=== PATIENT | male | born 1960 | race Caucasian/White ===

== ENCOUNTER 2018-12-23 02:50 | Emergency (ER) | payer MEDICAID ==
[2018-12-23] MEDS ORDERED: Morphine 2 MG/ML Syringe IVPUSH PRN (03:22)
[2018-12-23] MEDS ORDERED: Ondansetron 4 MG/2 ML SDV IVPUSH ONE (03:25)
[2018-12-23] MEDS ORDERED: Morphine 2 MG/ML Syringe IVPUSH ONE ×3 (03:25→11:41)
--- NOTE | 2018-12-23 03:28 | EDM.PDOC ---
ED HPI GENERAL MEDICAL PROBLEM - General Chief Complaint: Abdominal Pain Stated Complaint: Abdominal pain with distention Time Seen by Provider: 12/23/18 03:15 Source of Information: Reports: Patient History Limitations: Reports: No Limitations - History of Present Illness INITIAL COMMENTS - FREE TEXT/NARRATIVE: Patient states while cleaning the local [employer] tonight approximately an hour and a half ago he had a sharp sudden pain more so over the right lower quadrant that he says is a 10 out of 10 and hurts now to even move or walk he is had a sudden mont[place] of nausea but no vomiting he denies any fever or chills has had a positive bm today no problems with urination says he ate normal tonight no change from regular diet says he is currently undergoing radiation secondary to a recently diagnosed liver cancer he denies any back pain high blood pressure Onset: Today, Sudden Duration: Hour(s): Severity: Severe Improves with: Reports: None Associated Symptoms: Reports: No Other Symptoms mid abdomen Pain Score (Numeric/FACES): 6 - Related Data Allergies Allergy/AdvReac Type Severity Reaction Status Date / Time No Known Allergies Allergy Verified 12/23/18 03:19 Home Meds: Home Meds . [No Known Home Meds] 07/22/15 [History] Past Medical History - Past Health History Medical/Surgical History: Denies Medical/Surgical History - Infectious Disease History Infectious Disease History: Reports: None ED ROS GENERAL - Review of Systems Review Of Systems: ROS reveals no pertinent complaints other than HPI. Constitutional: Denies: Fever, Chills, Malaise, Weakness, Fatigue HEENT: Reports: No Symptoms Respiratory: Reports: No Symptoms Cardiovascular: Reports: No Symptoms Endocrine: Reports: No Symptoms GI/Abdominal: Reports: Abdominal Pain, Nausea. Denies: Black Stool, Bloody Stool, Constipation, Decreased Appetite, Difficulty Swallowing, Flatus, Hematochezia, Melena, Vomiting : Reports: No Symptoms Musculoskeletal: Reports: No Symptoms Skin: Reports: No Symptoms Neurological: Reports: No Symptoms Psychiatric: Reports: No Symptoms Hematologic/Lymphatic: Reports: No Symptoms Immunologic: Reports: No Symptoms ED EXAM, GI/ABD - Physical Exam Exam: See Below Exam Limited By: No Limitations General Appearance: Alert, WD/WN, Mild Distress Eyes: Bilateral: Normal Appearance Throat/Mouth: Normal Inspection, Normal Lips, Normal Teeth, Normal Gums, Normal Oropharynx, Normal Voice, No Airway Compromise (mmm) Neck: Normal Inspection, Supple, Full Range of Motion. No: Lymphadenopathy (L) , Lymphadenopathy (R) Respiratory/Chest: No Respiratory Distress, Lungs Clear, Normal Breath Sounds, No Accessory Muscle Use GI/Abdominal Exam: Guarding, Rebound, Tender, Other (Patient noted to have slightly distended abdomen that is soft but he is guarding with positive rebound increased bowel sounds diffusely across the abdomen slight pain with a Rosving sign unsure for hepatosplenomegaly secondary to patient was so tender I could not appreciate the size of the spleen or liver). No: Non-Tender, No Abnormal Bruit, No Mass Back Exam: Full Range of Motion. No: CVA Tenderness (L), CVA Tenderness (R) Extremities: Normal Inspection, Normal Range of Motion, No Pedal Edema, Normal Capillary Refill Neurological: Alert, Oriented, CN II-XII Intact, Normal Cognition Psychiatric: Anxious Skin Exam: Warm, Intact, Normal Color. No: No Rash (Patient was noted to have 2 -3 mm circular superficial abrasions diffusely across the body and no particular pattern when asked what was going on he said they have recently had bed bugs at home there were no apparent linear burrows they were in healing stages no evidence of signs or symptoms of secondary infection) Lymphatic: No Adenopathy Course - Vital Signs Text/Narrative:: Vital signs were all stable as noted CBC CMP and urinalysis lactic acid CT abdomen and pelvis with IV contrast was ordered patient was given morphine 2 mg IV and can be titrated to 4 mg as needed for pain he was also given Zofran 4 mg IV elevated lft pt with DX Liver CA CT abd new onset ascities , Moderate ileus bowel gas pattern Last Recorded V/S: Last Vital Signs Temp 37.0 C 12/23/18 02:55 Pulse 73 12/23/18 02:55 Resp 16 12/23/18 02:55 BP 107/72 12/23/18 02:55 Pulse Ox 98 12/23/18 02:55 - Orders/Labs/Meds Orders: Active Orders 24 hr Category Date Time Status Abdomen Pelvis w Cont [CT] Stat Exams 12/23/18 03:22 Taken UA W/MICROSCOPIC [URIN] Stat Lab 12/23/18 03:22 Ordered Sodium Chloride 0.9% @ 125 MLS/HR (1000ml) Med 12/23/18 06:15 Ordered Sodium Chloride 0.9% [Normal Saline] 1,000 ml IV ASDIRECTED Labs: Laboratory Tests 12/23/18 12/23/18 12/23/18 Range/Units 03:36 03:36 03:36 WBC 5.3 (4.0-10.0) x10^3/uL RBC 4.62 (4.5-6.0) x10^6/uL Hgb 13.6 L (14.0-18.0) g/dL Hct 40.1 (40.0-52.0) % MCV 86.8 D (78.0-93.0) fL MCH 29.4 (26.0-32.0) pg MCHC 33.9 (32.0-36.0) g/dL RDW Coeff of Elijah 17.9 H (10.0-15.0) % Plt Count 233 D (130-400) x10^3/uL Neut % (Auto) 71.1 (50.0-80.0) % Lymph % (Auto) 13.9 L (25.0-50.0) % [place] % (Auto) 12.5 H (2.0-11.0) % Eos % (Auto) 1.7 (0.0-4.0) % Baso % (Auto) 0.8 (0.2-1.2) % Sodium 141 (136-145) mmol/L Potassium 4.0 (3.5-5.1) mmol/L Chloride 104 (98-107) mmol/L Carbon Dioxide 26 (21-32) mmol/L Anion Gap 15.0 (10-20) mmol/L BUN 12 (7-18) mg/dL Creatinine 1.2 (0.70-1.30) mg/dL Est Cr Clr Drug Dosing 66.28 mL/min Estimated GFR (MDRD) > 60 Glucose 123 H (74-106) mg/dL Lactic Acid 1.5 (0.4-2.0) mmol/L Calcium 8.7 (8.5-10.1) mg/dL Corrected Calcium 9.98 (8.5-10.1) mg/dL Total Bilirubin 1.5 H (0.2-1.0) mg/dL AST 501 H (15-37) U/L ALT 670 H (16-63) U/L Alkaline Phosphatase 110 (46-116) U/L Total Protein 6.7 (6.4-8.2) g/dL Albumin 2.4 L (3.4-5.0) g/dL Globulin 4.3 Albumin/Globulin Ratio 0.56 Meds: Medications Discontinued Medications Generic Name Dose Route Start Last Admin Trade Name Freq PRN Reason Stop Dose Admin Ondansetron HCl 8 mg/ Sodium 104 mls @ 400 mls/hr 12/23/18 03:31 Chloride IV 12/23/18 03:46 ONETIME ONE Iopamidol 100 ml 12/23/18 04:37 12/23/18 05:07 Isovue-300 (61%) IVPUSH 12/23/18 04:38 100 ml ONETIME ONE Administration Morphine Sulfate 2 mg 12/23/18 03:22 Morphine IVPUSH Q2H PRN Abdominal Pain Morphine Sulfate 2 mg 12/23/18 03:25 12/23/18 03:32 Morphine IVPUSH 12/23/18 03:26 2 mg ONETIME ONE Administration Morphine Sulfate 2 mg 12/23/18 04:58 12/23/18 05:09 Morphine IVPUSH 12/23/18 04:59 2 mg ONETIME ONE Administration Ondansetron HCl 4 mg 12/23/18 03:25 12/23/18 03:46 Zofran IVPUSH 12/23/18 03:26 4 mg ONETIME ONE Administration Departure - Departure Time of Disposition: 06:00 Disposition: DC/Tfer to Acute Hospital 02 Condition: Fair Clinical Impression: Abdominal pain, Ascites, Ileus - Discharge Information Forms: ED Department Discharge, Interfacility Transfer EMTALA - Problem List & Annotations (1) Abdominal pain SNOMED Code(s): 18858957 Code(s): R10.9 - UNSPECIFIED ABDOMINAL PAIN Status: Acute Current Visit: Yes (2) Ascites SNOMED Code(s): 805507674 Code(s): R18.8 - OTHER ASCITES Status: Acute Current Visit: Yes (3) Ileus SNOMED Code(s): 379337095 Code(s): K56.7 - ILEUS, UNSPECIFIED Status: Acute Current Visit: Yes - My Orders Last 24 Hours: My Active Orders 12/23/18 03:22 Abdomen Pelvis w Cont [CT] Stat UA W/MICROSCOPIC [URIN] Stat 12/23/18 06:15 Sodium Chloride 0.9% @ 125 MLS/HR (1000ml) Sodium Chloride 0.9% [Normal Saline] 1,000 ml IV ASDIRECTED - Assessment/Plan Last 24 Hours: My Active Orders 12/23/18 03:22 Abdomen Pelvis w Cont [CT] Stat UA W/MICROSCOPIC [URIN] Stat 12/23/18 06:15 Sodium Chloride 0.9% @ 125 MLS/HR (1000ml) Sodium Chloride 0.9% [Normal Saline] 1,000 ml IV ASDIRECTED Plan: Dr. Valentine [facility] hospitalist she will except transfer the patient for higher level of care at 0 6:39 AM patient was rechecked states he feels better after the morphine and Zofran normal saline was started at a rate of 125 mL's per hour spoke with the patient in regard to transfer and diagnosis
[2018-12-23] MEDS ORDERED: Ondansetron 8 MG in Sodium Chloride 0.9% 100 ML IV ONE (03:31)
[2018-12-23 04:08] LABS: CHLORIDE,CL 104 mmol/L (98-107); SODIUM,NA 141 mmol/L (136-145)
[2018-12-23] MEDS ORDERED: Iopamidol 612 MG/ML 100 ML Bottle IVPUSH ONE (04:37)
[2018-12-23] MEDS ORDERED: Sodium Chloride 0.9% 1,000 ML IV SCH (06:15)
[2018-12-23] MEDS ORDERED: Morphine 2 MG/ML Syringe IVPUSH STA (07:34)
[2018-12-23 08:17] VITALS: BP 94/59
--- NOTE | 2018-12-23 08:42 | CT ---
[id number] CT/CT Abdomen Pelvis W IV EXAM: ABDOMEN AND PELVIS CT WITH CONTRAST INDICATION: Abdominal pain. COMPARISON: October 14, 2017. DISCUSSION: There are scattered small noncalcified nodules measuring up to 5 mm within the lung bases not seen on the prior examination which are suspicious for metastatic disease. Some of these are not in the [id number] of the prior exam, however. The liver is cirrhotic. A dominant 7.4 cm mass centered in the left lobe is unchanged and most consistent with hepatocellular carcinoma. There are multiple other smaller heterogeneous and hypodense foci throughout the liver which are incompletely characterized on this portal venous examination. Invasion of the left portal venous system is similar to the prior study. Portal hypertension with stable mild splenomegaly with spleen measuring up to 13.2 cm in AP diameter, upper abdominal varices and moderate ascites. Ascites has markedly increased relative to the prior examination. There are dilated small bowel loops in the left abdomen which may relate to a localized ileus, but follow-up could help further exclude evidence of obstruction. A thick-walled appearance of the distal esophagus could relate to esophageal varices or esophagitis. Cholelithiasis. There is chronic gallbladder wall thickening in the context of liver disease limiting assessment for acute cholecystitis. The left kidney contains a small nonobstructing calculus and a small cyst. The pancreas, adrenal glands, right kidney and large bowel are normal in appearance. The osseous structures are unremarkable. IMPRESSION: 1. New small nodules in the lung bases suspicious for metastatic disease. 2. Cirrhosis, portal hypertension and dominant left hepatic hepatoma are similar to the previous examination. 3. Moderate ascites seen in minimally increased relative to the prior study. 4. Dilated small bowel loops in the left abdomen could relate to a localized ileus, but follow-up may be useful to help further exclude an early obstruction. Teddy Schmidt MD 12/23/18 0840 Thank you for allowing us to participate in the care of your patient.
[2018-12-23] MEDS ORDERED: Sodium Chloride 0.9% 10 ML Syringe IV PRN (11:50)
== END 2018-12-23 12:15 | disposition short-term general hospital (02) ==
LOC: VM.ED 02:50
DX: K56.7 Ileus, unspecified (principal); R18.8 Other ascites
CPT/HCPCS: 36415; 74177; 80053; 83605; 85025; 96361; 96374; 96375; 96376; 99285; J2270; J2405; J7030; Q9967

== ENCOUNTER 2019-01-17 00:20 | Emergency (ER) | payer MEDICAID ==
[2019-01-17] MEDS ORDERED: Sodium Chloride 0.9% 10 ML Syringe FLUSH PRN (00:38)
[2019-01-17] MEDS ORDERED: Ondansetron 4 MG/2 ML SDV IVPUSH ONE (00:42)
[2019-01-17] MEDS ORDERED: HYDROmorphone 1 MG/ML Syringe IVPUSH ONE (00:42)
--- NOTE | 2019-01-17 01:19 | EDM.PDOC ---
ED HPI GENERAL MEDICAL PROBLEM - General Chief Complaint: Abdominal Pain Stated Complaint: Abdominal Pain Time Seen by Provider: 01/17/19 00:35 Source of Information: Reports: Patient History Limitations: Reports: No Limitations - History of Present Illness INITIAL COMMENTS - FREE TEXT/NARRATIVE: Pt. presents to ER with complaints of R lower quadrant abdominal pain. Pt. 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 His PCP is at [facility], but he has been doing all of his cancer treatment through [facility]. Pt. sees Dr. Guevara for heme- onc. with his last appointment being 01/13/19. Pt. has severe ascites and has had paracentesis in the past. Pt. states that his oncologist wanted to perform paracentesis on the , but pt. refused as he did not have time. Pt. had radioembolization on the liver tumor in December and has had paracentesis performed 2-3 times. There was discussion about placement of a Pleur-x peritoneal catheter. He has yet to start any chemotherapy. Onset: Today Onset Date: 01/17/19 Location: Reports: Abdomen Quality: Reports: Ache Severity: Severe - Related Data Allergies Allergy/AdvReac Type Severity Reaction Status Date / Time No Known Allergies Allergy Verified 01/17/19 01:19 Home Meds: Home Meds hydrOXYzine HCl [Atarax] 25 mg PO Q8H PRN 01/17/19 [History] oxyCODONE 5 mg PO Q4HR #5 tab 01/17/19 [Rx] Past Medical History - Past Health History Medical/Surgical History: Denies Medical/Surgical History Gastrointestinal History: Reports: PUD - Infectious Disease History Infectious Disease History: Reports: None - Past Surgical History GI Surgical History: Reports: Appendectomy ED ROS GENERAL - Review of Systems Review Of Systems: See Below Constitutional: Reports: No Symptoms HEENT: Reports: No Symptoms Respiratory: Reports: No Symptoms Cardiovascular: Reports: No Symptoms Endocrine: Reports: No Symptoms GI/Abdominal: Reports: Abdominal Pain : Reports: No Symptoms Musculoskeletal: Reports: No Symptoms Skin: Reports: No Symptoms Neurological: Reports: No Symptoms Psychiatric: Reports: No Symptoms Hematologic/Lymphatic: Reports: No Symptoms Immunologic: Reports: No Symptoms ED EXAM, GENERAL - Physical Exam Exam: See Below Exam Limited By: No Limitations General Appearance: Alert, WD/WN, No Apparent Distress Nose: Normal Inspection, Normal Mucosa, No Blood Throat/Mouth: Normal Inspection, Normal Lips, Normal Teeth, Normal Gums Head: Atraumatic, Normocephalic Neck: Normal Inspection, Supple, Non-Tender, Full Range of Motion Respiratory/Chest: No Respiratory Distress, Lungs Clear, Normal Breath Sounds, No Accessory Muscle Use, Chest Non-Tender Cardiovascular: Normal Peripheral Pulses, Regular Rate, Rhythm, No Edema, No Gallop, No JVD, No Murmur, No Rub Peripheral Pulses: 4+: Radial (R) GI/Abdominal: Normal Bowel Sounds, Distended, Rigid, Tender, Hepatomegaly (Male) Exam: Deferred Rectal (Males) Exam: Deferred Back Exam: Normal Inspection, Full Range of Motion Extremities: Normal Inspection, Normal Range of Motion, Non-Tender, No Pedal Edema, Normal Capillary Refill Neurological: Alert, Oriented, CN II-XII Intact, Normal Cognition, Normal Gait, Normal Reflexes, No Motor/Sensory Deficits Psychiatric: Normal Affect, Normal Mood Skin Exam: Warm, Dry, Intact, Normal Color, No Rash Lymphatic: No Adenopathy Course - Orders/Labs/Meds Orders: Active Orders 24 hr Category Date Time Status CBC WITH AUTO DIFF [HEME] Stat Lab 01/17/19 00:38 Ordered COMPREHENSIVE METABOLIC PN,CMP [CHEM] Stat Lab 01/17/19 00:38 Ordered CRP [C-REACTIVE PROTEIN] [CHEM] Stat Lab 01/17/19 00:39 Ordered INR,PT,PROTHROMBIN TIME [COAG] Stat Lab 01/17/19 00:38 Ordered LACTIC ACID [CHEM] Stat Lab 01/17/19 00:40 Ordered MAGNESIUM [CHEM] Stat Lab 01/17/19 00:39 Ordered PHOSPHORUS [CHEM] Stat Lab 01/17/19 00:39 Ordered Sodium Chloride 0.9% [Saline Flush] Med 01/17/19 00:38 Ordered 10 ml FLUSH ASDIRECTED PRN Peripheral IV Insertion Adult [OM.PC] Routine Oth 01/17/19 00:39 Ordered Medication Orders Sodium Chloride (Saline Flush) 10 ml FLUSH ASDIRECTED PRN PRN Reason: Keep Vein Open Meds: Medications Generic Name Dose Route Start Last Admin Trade Name Freq PRN Reason Stop Dose Admin Sodium Chloride 10 ml 01/17/19 00:38 Saline Flush FLUSH ASDIRECTED PRN Keep Vein Open Discontinued Medications Generic Name Dose Route Start Last Admin Trade Name Leslie PRN Reason Stop Dose Admin Hydromorphone HCl 1 mg 01/17/19 00:42 Dilaudid IVPUSH 01/17/19 00:43 ONETIME ONE Ondansetron HCl 4 mg 01/17/19 00:42 Zofran IVPUSH 01/17/19 00:43 ONETIME ONE Departure - Departure Time of Disposition: 02:21 Disposition: Home, Self-Care 01 Clinical Impression: Cirrhosis of liver, Ascites, Hepatocellular carcinoma - Discharge Information Referrals: Esther Boswell, [facility] [Primary Care Provider] - - Problem List Review Problem List Initiated/Reviewed/Updated: Yes - My Orders Last 24 Hours: My Active Orders 01/17/19 00:38 CBC WITH AUTO DIFF [HEME] Stat COMPREHENSIVE METABOLIC PN,CMP [CHEM] Stat INR,PT,PROTHROMBIN TIME [COAG] Stat Sodium Chloride 0.9% [Saline Flush] 10 ml FLUSH ASDIRECTED PRN 01/17/19 00:39 CRP [C-REACTIVE PROTEIN] [CHEM] Stat MAGNESIUM [CHEM] Stat PHOSPHORUS [CHEM] Stat Peripheral IV Insertion Adult [OM.PC] Routine 01/17/19 00:40 LACTIC ACID [CHEM] Stat - Assessment/Plan Last 24 Hours: My Active Orders 01/17/19 00:38 CBC WITH AUTO DIFF [HEME] Stat COMPREHENSIVE METABOLIC PN,CMP [CHEM] Stat INR,PT,PROTHROMBIN TIME [COAG] Stat Sodium Chloride 0.9% [Saline Flush] 10 ml FLUSH ASDIRECTED PRN 01/17/19 00:39 CRP [C-REACTIVE PROTEIN] [CHEM] Stat MAGNESIUM [CHEM] Stat PHOSPHORUS [CHEM] Stat Peripheral IV Insertion Adult [OM.PC] Routine 01/17/19 00:40 LACTIC ACID [CHEM] Stat Plan: Discussed findings with Dr. Skinner. She states that she does not feel comfortable performing the procedure based on his past medical history. All of his laboratory studies are for the most part unchanged. He is not short of breath at this time and the dilaudid helped significantly with the pain, so the patient was given the option to follow-up either on Saturday regarding paracentesis or being transferred tonight (he does not have reliable transportation). Decision was made to follow-up in Saturday. He was offered admission to our facility for pain control if needed as well. Pt. wished to be discharge. He was urged to return to ER if he has any fever, chills, worsening discomfort, chest pain, or shortness of breath.
[2019-01-17 01:22] VITALS: BP 99/74
[2019-01-17 01:56] LABS: ANION GAP 11.9 mmol/L (10-20)
[2019-01-17] MEDS ORDERED: oxyCODONE 5 MG Tab ONE (02:26)
== END 2019-01-17 02:40 | disposition home or self-care (01) ==
LOC: VM.ED 00:20
DX: K74.60 Unspecified cirrhosis of liver (principal); C22.0 Liver cell carcinoma; R18.8 Other ascites; Z90.49 Acquired absence of other specified parts of digestive tract
CPT/HCPCS: 36415; 80053; 83605; 83735; 84100; 85025; 85610; 86140; 96374; 96375; 99284; A9270; J1170; J2405

== ENCOUNTER 2019-01-21 15:55 | Emergency (ER) | payer MEDICAID ==
[2019-01-21] MEDS ORDERED: Sodium Chloride 0.9% 10 ML Syringe FLUSH PRN (16:22)
--- NOTE | 2019-01-21 16:25 | EDM.PDOC ---
ED HPI GENERAL MEDICAL PROBLEM - General Chief Complaint: Abdominal Pain Stated Complaint: STOMACH PAIN Time Seen by Provider: 01/21/19 15:58 Source of Information: Reports: Patient, Old Records, RN, RN Notes Reviewed History Limitations: Reports: No Limitations - History of Present Illness INITIAL COMMENTS - FREE TEXT/NARRATIVE: Pt. presents to ER with complaints of R lower quadrant abdominal pain that started last Saturday. Patient was seen in this ER on 01/17/2019. He was offered admission, but refused. Pt. 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 His PCP is at [facility], but he has been doing all of his cancer treatment through [facility]. Pt. sees Dr. Guevara for heme-onc. with his last appointment being 05/30. Pt. has severe ascites and has had paracentesis in the past. Pt. states that his oncologist wanted to perform paracentesis on the , but pt. refused as he did not have time. Pt. had radioembolization on the liver tumor in December and has had paracentesis performed 2-3 times. There was discussion about placement of a Pleur-x peritoneal catheter. He has yet to start any chemotherapy. Patient stats he started oral chemo today. He gonzalez not think his pain is related to the chemo since the pain started days before. He denies any N/V/D. He states his BM's have been daily and normal. He was given pain medication at his last ER visit last Saturday but states he ran out of the medication today. Onset: Gradual Onset Date: 01/17/19 Right Lower Abdomen Pain Score (Numeric/FACES): 9 - Related Data Allergies Allergy/AdvReac Type Severity Reaction Status Date / Time No Known Allergies Allergy Verified 01/21/19 16:02 Home Meds: Home Meds hydrOXYzine HCl [Atarax] 25 mg PO Q8H PRN 01/17/19 [History] Lenvatinib Mesylate [Lenvima] 12 mg PO DAILY 01/21/19 [History] Loperamide [Imodium] 2 mg PO ASDIRECTED PRN 01/21/19 [History] Ondansetron [Zofran] 8 mg PO ASDIRECTED PRN 01/21/19 [History] Past Medical History - Past Health History Medical/Surgical History: Denies Medical/Surgical History Gastrointestinal History: Reports: PUD Other Gastrointestinal History: Transaminitis. 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 Denies: Fever, Chills Respiratory: Denies: Shortness of Breath Cardiovascular: Denies: No Symptoms, Chest Pain, Palpitations GI/Abdominal: Reports: Abdominal Pain, Decreased Appetite. Denies: Diarrhea, Nausea, Vomiting Skin: Reports: No Symptoms Neurological: Reports: No Symptoms ED EXAM, GI/ABD - Physical Exam Exam: See Below Exam Limited By: No Limitations General Appearance: Alert, No Apparent Distress, Cachetic Respiratory/Chest: No Respiratory Distress, Lungs Clear, Decreased Breath Sounds Cardiovascular: Normal Peripheral Pulses, Regular Rate, Rhythm GI/Abdominal Exam: Distended, Rigid, Tender (RLQ), Abnormal Bowel Sounds ( Hypoactive). No: Rebound Neurological: Alert, Oriented Skin Exam: Warm, Dry, Intact Course - Vital Signs Last Recorded V/S: Last Vital Signs Temp 36.7 C 01/21/19 15:57 Pulse 75 01/21/19 15:57 Resp 20 01/21/19 15:57 BP 111/65 01/21/19 15:57 Pulse Ox 96 01/21/19 15:57 - Orders/Labs/Meds Orders: Active Orders 24 hr Category Date Time Status UA RFX JOSE AND CULT IF INDIC [URIN] Stat Lab 01/21/19 16:21 Ordered Sodium Chloride 0.9% [Saline Flush] Med 01/21/19 16:22 Active 10 ml FLUSH ASDIRECTED PRN Peripheral IV Insertion Adult [OM.PC] Routine Oth 01/21/19 16:22 Ordered Medication Orders Sodium Chloride (Saline Flush) 10 ml FLUSH ASDIRECTED PRN PRN Reason: Keep Vein Open Labs: Laboratory Tests 01/21/19 01/21/19 01/21/19 Range/Units 16:43 16:43 16:43 WBC 8.6 (4.0-10.0) x10^3/uL RBC 4.07 L (4.5-6.0) x10^6/uL Hgb 12.4 L (14.0-18.0) g/dL Hct 33.8 L (40.0-52.0) % MCV 83.0 (78.0-93.0) fL MCH 30.5 (26.0-32.0) pg MCHC 36.7 H (32.0-36.0) g/dL RDW Coeff of Elijah 20.0 H (10.0-15.0) % Plt Count 201 (130-400) x10^3/uL Neut % (Auto) 75.2 (50.0-80.0) % Lymph % (Auto) 14.3 L (25.0-50.0) % [place] % (Auto) 9.5 (2.0-11.0) % Eos % (Auto) 0.7 (0.0-4.0) % Baso % (Auto) 0.3 (0.2-1.2) % Sodium 136 (136-145) mmol/L Potassium 5.0 (3.5-5.1) mmol/L Chloride 101 (98-107) mmol/L Carbon Dioxide 26 (21-32) mmol/L Anion Gap 14.0 (10-20) mmol/L BUN 34 H (7-18) mg/dL Creatinine 2.0 H (0.70-1.30) mg/dL Est Cr Clr Drug Dosing TNP Estimated GFR (MDRD) 34 Glucose 121 H (74-106) mg/dL Lactic Acid 1.9 (0.4-2.0) mmol/L Calcium 8.3 L (8.5-10.1) mg/dL Corrected Calcium 10.06 (8.5-10.1) mg/dL Total Bilirubin 3.8 H (0.2-1.0) mg/dL AST 313 H (15-37) U/L ALT 546 H (16-63) U/L Alkaline Phosphatase 111 (46-116) U/L C-Reactive Protein 1.2 H (<=0.9) mg/dL Total Protein 5.6 L (6.4-8.2) g/dL Albumin 1.8 L (3.4-5.0) g/dL Globulin 3.8 Albumin/Globulin Ratio 0.47 Amylase 69 (25-115) U/L Lipase 210 (73-393) U/L Meds: Medications Generic Name Dose Route Start Last Admin Trade Name Freq PRN Reason Stop Dose Admin Sodium Chloride 10 ml 01/21/19 16:22 Saline Flush FLUSH ASDIRECTED PRN Keep Vein Open Discontinued Medications Generic Name Dose Route Start Last Admin Trade Name Freq PRN Reason Stop Dose Admin Hydromorphone HCl 1 mg 01/21/19 16:22 01/21/19 16:44 Dilaudid IVPUSH 01/21/19 16:23 1 mg ONETIME ONE Administration Sodium Chloride 1,000 mls @ 999 mls/hr 01/21/19 16:23 01/21/19 16:40 Normal Saline IV 01/21/19 17:23 999 mls/hr ONETIME ONE Administration Iopamidol 100 ml 01/21/19 16:27 01/21/19 16:34 Isovue-300 (61%) IVPUSH 01/21/19 16:28 100 ml ONETIME ONE Administration Ondansetron HCl 4 mg 01/21/19 16:22 01/21/19 16:42 Zofran IVPUSH 01/21/19 16:23 4 mg ONETIME ONE Administration - Radiology Interpretation Free Text/Narrative:: CT Abd/Pelvis w contrast: Cirrhosis with sequela of portal hypertension including large volume ascites which is increased when compared to the prior study. There is evidence of multifocal HCC See scanned report in EMR for details CT Results Date: 01/21/19 CT Results Time: 17:17 Departure - Departure Time of Disposition: 17:41 Disposition: DC/Tfer to Acute Hospital 02 Condition: Fair Clinical Impression: Liver cancer, primary, with metastasis from liver to other site, Ascites due to alcoholic cirrhosis Acute renal failure Qualifiers: Acute renal failure type: unspecified Qualified Code(s): N17.9 - Acute kidney failure, unspecified - Discharge Information *PRESCRIPTION DRUG MONITORING PROGRAM REVIEWED*: Not Applicable *COPY OF PRESCRIPTION DRUG MONITORING REPORT IN PATIENT JOSH: Not Applicable Forms: Interfacility Transfer EMTALA ED Communication - ED Communication Date/Time Date: 01/21/19 Time Called: 17:34 - Discussed Case With (1) Discussed Case With (1): Admitting Provider (Dr. Le) - Conversation Summary Admitting Provider Agreed to Patient's Admission: Yes Patient Aware of Amendments fo Care Plan: Yes - Problem List Review Problem List Initiated/Reviewed/Updated: Yes - My Orders Last 24 Hours: My Active Orders 01/21/19 16:21 UA RFX JOSE AND CULT IF INDIC [URIN] Stat 01/21/19 16:22 Sodium Chloride 0.9% [Saline Flush] 10 ml FLUSH ASDIRECTED PRN Peripheral IV Insertion Adult [OM.PC] Routine - Assessment/Plan Last 24 Hours: My Active Orders 01/21/19 16:21 UA RFX JOSE AND CULT IF INDIC [URIN] Stat 01/21/19 16:22 Sodium Chloride 0.9% [Saline Flush] 10 ml FLUSH ASDIRECTED PRN Peripheral IV Insertion Adult [OM.PC] Routine Assessment:: Liver CA Ascites Acute Renal Failure Abdominal Pain Plan: Labs and CT scan results discussed with patient. Case discussed with accepting provider Dr Rey Thomas [place]. Patient will be sent via [facility] to [place]. Patient and SO aware and agree with plan of care and transfer.
[2019-01-21] MEDS: Iopamidol 612 MG/ML 100 ML Bottle IVPUSH ONE (16:34)
[2019-01-21] MEDS: Sodium Chloride 0.9% 1,000 ML IV ONE (16:40)
[2019-01-21] MEDS: Ondansetron 4 MG/2 ML SDV IVPUSH ONE (16:42)
[2019-01-21] MEDS: HYDROmorphone 1 MG/ML Syringe IVPUSH ONE (16:44)
[2019-01-21 17:12] LABS: CHLORIDE,CL 101 mmol/L (98-107); SODIUM,NA 136 mmol/L (136-145)
--- NOTE | 2019-01-21 17:20 | CT ---
[id number] CT/CT Abdomen Pelvis W IV EXAM: CT Abdomen Pelvis W IV CLINICAL DATA: RIGHT LOWER QUADRANT ABDOMEN PAIN,LIVER CANCER. COMPARISON STUDY: December 23, 2018. FINDINGS: Groundglass densities within the right middle lobe. Multiple noncalcified pulmonary nodules have increased in size when compared to the prior study. For example there is a 0.8 cm nodule at the right lung base anteriorly (series 2 image 12). This previously measured 0.6 cm. Nodular contour of liver consistent with cirrhosis. There is a dominant 7.4 cm mass within the left lobe which is not changed when compared to the prior. Multiple other small lesions are identified within the liver consistent with multifocal disease. 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 Hypodensity of the right hepatic lobe posteriorly likely related to perfusion abnormality. Sequela of portal hypertension with stable 6 mild splenomegaly measuring up to 13 cm. There are numerous upper abdominal varices as well as esophageal varices. There is large volume ascites seen throughout the abdomen and pelvis. Cholelithiasis. Calcification within the pancreas likely sequela of chronic pancreatitis. The adrenal glands and kidneys are unremarkable. Thickening of the bowel wall likely related to low protein state. No evidence of obstruction. The appendix is not well-visualized. No lymphadenopathy, free fluid, or pneumoperitoneum. Scattered changes of spondylosis the spine. No fracture or osseous lesion. IMPRESSION: 1. Cirrhosis with sequela of portal hypertension including large volume ascites which is increased when compared to the prior study. There is evidence of multifocal HCC. The dominant lesion within the left hepatic lobe is not significantly changed. Stable left portal vein tumor thrombus. 2. Cholelithiasis. 3. Numerous noncalcified pulmonary nodules identified at the lung bases bilaterally. Many of these have increased in size when compared to the prior study and may represent metastatic disease. Infectious/inflammatory etiology is also in the differential. Jose Beyer DO 01/21/19 1719 Thank you for allowing us to participate in the care of your patient.
[2019-01-21 18:08] VITALS: BP 118/77
== END 2019-01-21 18:20 | disposition short-term general hospital (02) ==
LOC: VM.ED 15:55
DX: N17.9 Acute kidney failure, unspecified (principal); K70.31 Alcoholic cirrhosis of liver with ascites; C22.8 Malignant neoplasm of liver, primary, unspecified as to type; D63.0 Anemia in neoplastic disease; C79.89 Secondary malignant neoplasm of other specified sites; Z79.899 Other long term (current) drug therapy
CPT/HCPCS: 36415; 74177; 80053; 82150; 83605; 83690; 85025; 86140; 96361; 96374; 96375; 99285-25; J1170; J2405; J7030; Q9967